=== PATIENT | male | born 1980 | race Caucasian/White ===

== ENCOUNTER 2017-11-14 14:30 | Emergency (ER) | payer BC ==
[~2017-11-14] VITALS: Ht 185.4 cm; Wt 113.0 kg
[2017-11-14] MEDS ORDERED: LORazepam 1 MG tablet PO ONE (15:35)
[2017-11-14 15:59] LABS: URINE AMPHETAMINE SCREEN NEGATIVE (Neg); URINE BARBITUATE SCREEN NEGATIVE (Neg); URINE BENZODIAZEPINES SCREEN NEGATIVE (Neg); URINE CANNABINOID SCREEN NEGATIVE (Neg); URINE COCAINE SCREEN NEGATIVE (Neg); URINE METHADONE SCREEN NEGATIVE (Neg); URINE OPIATE SCREEN NEGATIVE (Neg); URINE PHENCYCLIDINE SCREEN NEGATIVE (Neg)
[2017-11-14 17:40] VITALS: BP 160/118
== END 2017-11-14 17:45 | disposition left against medical advice (07) ==
LOC: ER 14:31
DX: F41.0 Panic disorder [episodic paroxysmal anxiety] (principal)
CPT/HCPCS: 80305; 99284